=== PATIENT | male | born 1970 | race Caucasian/White ===

== ENCOUNTER 2016-10-27 12:44 | Emergency (ER) | payer OTHER ==
[~2016-10-27] VITALS: Ht 185.4 cm; Wt 77.0 kg
[~2016-10-27 12:44] MED LIST: HYDR-3129 PO; TYLE3 PO
[2016-10-27 12:47] VITALS: BP 150/94; PULSE 96; RESP 20; TEMP 97.6; O2SAT 97
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
[2016-10-27] MEDS ORDERED: METHOCARBAMOL 500 MG TAB PO ONE (14:00)
[2016-10-27] MEDS ORDERED: IBUPROFEN 600 MG TAB PO ONE (14:00)
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
[2016-10-27] MEDS ORDERED: ROBA750T PO (15:12)
== END 2016-10-27 15:22 | disposition home or self-care (01) ==
LOC: NEPB 12:44
DX: S16.1XXA Strain of muscle, fascia and tendon at neck level, initial encounter (principal); F17.200 Nicotine dependence, unspecified, uncomplicated; V89.2XXA Person injured in unspecified motor-vehicle accident, traffic, initial encounter; Y92.410 Unspecified street and highway as the place of occurrence of the external cause
CPT/HCPCS: 72125

== ENCOUNTER 2017-11-06 07:53 | Emergency (ER) | payer OTHER ==
[~2017-11-06] VITALS: Ht 185.4 cm; Wt 75.0 kg
[~2017-11-06 07:53] MED LIST changes: -HYDR-3129 PO; +ROBA750T PO; -TYLE3 PO
[2017-11-06 07:54] VITALS: BP 165/99; PULSE 107; RESP 16; TEMP 98.7; O2SAT 98
[2017-11-06 08:05] VITALS: BP 137/102; PULSE 110; RESP 18; O2SAT 99
[2017-11-06] MEDS ORDERED: HYDR-3583 PO (08:10)
[2017-11-06] MEDS ORDERED: ASPI-516 CHEW (08:10)
[2017-11-06] MEDS ORDERED: AMLO5TAB2 PO (08:10)
[2017-11-06] MEDS ORDERED: CYCL5TAB PO (08:10)
--- NOTE | 2017-11-06 08:15 | PD ---
HPI Chief Complaint: Bleeding Time Seen by Provider: 08:02 Travel History International Travel<30 days: No Contact w/Intl Traveler<30days: No Traveled to known affect area: No History of Present Illness HPI This patient complains of rectal bleeding. He had a bowel movement this morning and there is some bright red blood passed with the stool. Duration 2 hours. He had no bleeding yesterday. He takes a daily aspirin. No other blood thinners. Never had a colonoscopy. Never had a GI bleeding workup. He is not having abdominal pain or presyncopal symptoms. He is hypertensive and did not take his medication today. Severity of symptoms is mild. No alleviating factors. No exacerbating factors. PFSH Past Medical History Hx Anticoagulant Therapy: No Cardiovascular Problems: No Chemotherapy: No Cerebrovascular Accident: No Diabetes: No Diminished Hearing: No Gastrointestinal Disorders: Yes (RECTAL BLEEDING IN THE PAST) Respiratory: No Past Surgical History Other Surgery: Yes (LEFT ARM FOR "CUT") Social History Alcohol Use: Yes (12-18 pack/day) Tobacco Use: Yes (1.5 ppd) Substance Use: No Allergies-Medications (Allergen,Severity, Reaction): Coded Allergies: No Known Allergies (Verified Adverse Reaction, Unknown, 11/06/17) Reported Meds & Prescriptions Reported Meds & Active Scripts Active Reported Aspirin 81 Mg Chew 81 Mg CHEW DAILY Amlodipine (Amlodipine Besylate) 5 Mg Tab 5 Mg PO DAILY Flexeril (Cyclobenzaprine HCl) 5 Mg Tab 5 Mg PO TID PRN Hydrocodone-Acetaminophen 10-325 mg Tab 1 Tab PO Q4H PRN Review of Systems General / Constitutional: No: Fever Eyes: No: Visual changes HENT: No: Headaches Cardiovascular: No: Chest Pain or Discomfort Respiratory: No: Shortness of Breath Gastrointestinal: Positive: Hematochezia, No: Abdominal Pain Genitourinary: No: Dysuria Musculoskeletal: Positive: Pain Skin: No Rash Neurologic: No: Weakness Psychiatric: No: Depression Endocrine: No: Polydipsia Hematologic/Lymphatic: No: Easy Bruising Physical Exam Narrative GENERAL: Well-nourished, well-developed patient in no apparent distress. SKIN: Focused skin assessment reveals no rash and nodules. Skin is Warm and dry. HEAD: Atraumatic. Normocephalic. EYES: Pupils equal and round. No scleral icterus. No injection or drainage. ENT: No nasal bleeding or discharge. Mucous membranes pink and moist. NECK: Trachea midline. No JVD. CARDIOVASCULAR: Regular rate and rhythm. No murmur appreciated. RESPIRATORY: No accessory muscle use. Clear to auscultation. Breath sounds equal bilaterally. GASTROINTESTINAL: Abdomen soft, non-tender, nondistended. Hepatic and splenic margins not palpable. MUSCULOSKELETAL: No obvious deformities. No clubbing. No cyanosis. No edema. NEUROLOGICAL: Awake and alert. No obvious cranial nerve deficits. Motor grossly within normal limits. Normal speech. PSYCHIATRIC: Appropriate mood and affect; insight and judgment normal. Rectal: No fissure. He has external hemorrhoids that are reddened and swollen but I do not see them actively bleeding at this time. Data Data Last Documented VS Vital Signs Date Time Temp Pulse Resp B/P (MAP) Pulse Ox O2 Delivery O2 Flow Rate FiO2 11/06/17 08:05 110 18 137/102 (114) 99 Room Air 11/06/17 07:54 98.7 Orders Orders Iv Access Insert/Monitor (11/06/17 08:09) Complete Blood Count With Diff (11/06/17 08:09) Prothrombin Time / Inr (Pt) (11/06/17 08:09) Act Partial Throm Time (Ptt) (11/06/17 08:09) Basic Metabolic Panel (Bmp) (11/06/17 08:09) Labs Laboratory Tests Test 11/06/17 08:10 White Blood Count 6.7 TH/MM3 Red Blood Count 4.32 MIL/MM3 Hemoglobin 14.8 GM/DL Hematocrit 43.1 % Mean Corpuscular Volume 99.7 FL Mean Corpuscular Hemoglobin 34.2 PG Mean Corpuscular Hemoglobin Concent 34.3 % Red Cell Distribution Width 13.1 % Platelet Count 268 TH/MM3 Mean Platelet Volume 7.2 FL Neutrophils (%) (Auto) 51.4 % Lymphocytes (%) (Auto) 37.3 % Monocytes (%) (Auto) 8.4 % Eosinophils (%) (Auto) 2.5 % Basophils (%) (Auto) 0.4 % Neutrophils # (Auto) 3.4 TH/MM3 Lymphocytes # (Auto) 2.5 TH/MM3 Monocytes # (Auto) 0.6 TH/MM3 Eosinophils # (Auto) 0.2 TH/MM3 Basophils # (Auto) 0.0 TH/MM3 CBC Comment DIFF FINAL Differential Comment Prothrombin Time 10.1 SEC Prothromb Time International Ratio 1.0 RATIO Activated Partial Thromboplast Time 26.5 SEC Blood Urea Nitrogen 15 MG/DL Creatinine 1.11 MG/DL Random Glucose 101 MG/DL Calcium Level 9.0 MG/DL Sodium Level 139 MEQ/L Potassium Level 4.2 MEQ/L Chloride Level 107 MEQ/L Carbon Dioxide Level 24.9 MEQ/L Anion Gap 7 MEQ/L Estimat Glomerular Filtration Rate 70 ML/MIN MDM Medical Decision Making Medical Screen Exam Complete: Yes Emergency Medical Condition: Yes Medical Record Reviewed: Yes Differential Diagnosis Hemorrhoidal bleeding, diverticulosis, GI tumor, polyp Narrative Course I have reviewed the patient's electronic medical record. Patient was here 1 year ago for cervical strain. Has not been here for GI bleeding IV placed and labs sent Abdomen is soft and benign and nontender Certainly could be hemorrhoidal bleeding but I do not have a way to definitively say that at this time. We discussed outpatient GI colonoscopy for more detailed evaluation. CBC reveals hemoglobin of 14.8 Coagulation studies and metabolic studies are normal Recommend GI follow-up to discuss colonoscopy Diagnosis Primary Impression: Rectal bleeding Additional Instructions: Follow-up with GI physician The patient was advised to follow up with their physician and return if they worsen. Avoid aspirin until bleeding evaluation has occurred Med/Other Pt SpecificInfo: Other Disposition: 01 DISCHARGE HOME Condition: Stable Rj Grigsby MD Nov 06, 2017 08:15
[2017-11-06 08:32] LABS: AUTOMATED NEUTROPHIL # 3.4 TH/MM3 (1.8-7.7); BASOPHIL % 0.4 % (0.0-2.0); EOSINOPHIL # 0.2 TH/MM3 (0-0.4); EOSINOPHIL % 2.5 % (0.0-4.0); HEMATOCRIT 43.1 % (39.0-51.0); HEMOGLOBIN 14.8 GM/DL (13.0-17.0); LYMPH % 37.3 % (9.0-44.0); LYMPHOCYTE # 2.5 TH/MM3 (1.0-4.8); MEAN CELL VOLUME 99.7 FL (80.0-100.0); MEAN CORPUSCULAR HEMOGLOBIN 34.2 PG (27.0-34.0); MEAN CORPUSCULAR HGB CONC 34.3 % (32.0-36.0); MEAN PLATELET VOLUME 7.2 FL (7.0-11.0); MONO % 8.4 % (0.0-8.0); MONOCYTE # 0.6 TH/MM3 (0-0.9); NEUT % 51.4 % (16.0-70.0); PLATELET COUNT 268 TH/MM3 (150-450); RED BLOOD COUNT 4.32 MIL/MM3 (4.50-5.90); RED CELL DISTRIBUTION WIDTH 13.1 % (11.6-17.2); WHITE BLOOD COUNT 6.7 TH/MM3 (4.0-11.0)
[2017-11-06 08:42] LABS: PROTHROMBIN TIME - PATIENT 10.1 SEC (9.8-11.6)
[2017-11-06 08:53] LABS: BICARBONATE 24.9 MEQ/L (21.0-32.0); CREATININE 1.11 MG/DL (0.60-1.30)
[2017-11-06 09:45] VITALS: BP 151/95; PULSE 91; RESP 18; O2SAT 99
== END 2017-11-06 09:59 | disposition home or self-care (01) ==
LOC: NEPC 07:53
DX: K62.5 Hemorrhage of anus and rectum (principal)
CPT/HCPCS: 80048; 85025; 85610; 85730; 99284